=== PATIENT | female | born 1995 | race Caucasian/White ===

== ENCOUNTER 2019-05-21 12:40 | Emergency (ER) | payer OTHER, BC ==
[~2019-05-21] VITALS: Ht 160 cm; Wt 77.1 kg
[2019-05-21 12:42] VITALS: Ht 160 cm; Wt 77.1 kg
[2019-05-21 13:45] LABS: BASOPHIL % 0.7 % (0-2); PLATELET COUNT 266 x10^3mcL (130-400); RED CELL DISTRIBUTION WIDTH 15.2 % (11.5-14.5)
[2019-05-21 14:20] LABS: CALCIUM 8.2 mg/dL (8.5-10.1); CARBON DIOXIDE 28.6 mmol/L (21-32); CHLORIDE SERUM 108 mmol/L (98-107); CREATININE SERUM 0.6 mg/dL (0.6-1.0); GFR1 > 60 mL/min; GLUCOSE SERUM 80 mg/dL (74-106); POTASSIUM SERUM 3.8 mmol/L (3.5-5.1); SODIUM SERUM 144 mmol/L (136-145)
[2019-05-21 14:24] LABS: ALBUMIN 3.4 g/dL (3.4-5.0); ALKALINE PHOSPHATASE 69 U/L (46-116); ALT/SGPT 29 U/L (14-59); AST/SGOT 16 U/L (15-37); BILIRUBIN TOTAL 0.2 mg/dL (0.20-1.00); LIPASE 120 IU/L (73-393); TOTAL PROTEIN, SERUM 6.7 g/dL (6.4-8.2)
[2019-05-21 17:00] VITALS: BP 110/52
== END 2019-05-21 17:00 | disposition home or self-care (01) ==
LOC: ED 12:40
PROVIDERS: Emergency Medicine
DX: R10.817 Generalized abdominal tenderness (principal); R10.816 Epigastric abdominal tenderness; R11.2 Nausea with vomiting, unspecified; R63.0 Anorexia
CPT/HCPCS: J1885; J3490; Q9967

== ENCOUNTER 2020-06-15 19:20 | Emergency (ER) | payer OTHER ==
[~2020-06-15] VITALS: Ht 160 cm; Wt 79.8 kg
[2020-06-15 19:27] VITALS: Ht 160 cm; Wt 79.8 kg
[2020-06-15] MEDS ORDERED: APAP EXTRA STR500 MG PO (20:11)
[2020-06-15] MEDS ORDERED: VOLTAREN100 GM TOP (20:11)
[2020-06-15 20:23] VITALS: BP 117/73
== END 2020-06-15 20:23 | disposition home or self-care (01) ==
LOC: ED 19:20
DX: M25.531 Pain in right wrist (principal); Z98.84 Bariatric surgery status; Z90.49 Acquired absence of other specified parts of digestive tract; Z90.89 Acquired absence of other organs